=== PATIENT | female | born 1975 | race Caucasian/White ===

== ENCOUNTER → 2021-09-12 | Outpatient (CLI) | payer BC | LOC: M RAD 08:28 | PROVIDERS: ATTEND Internal Medicine Gastroenterology | DX: K70.30 Alcoholic cirrhosis of liver without ascites (principal) ==

== ENCOUNTER 2021-09-26 19:28 | Emergency (ER) | payer BC ==
[~2021-09-26] VITALS: Ht 160 cm; Wt 62.2 kg
[2021-09-26] MEDS ORDERED: NS 1,000 ML IV ONE (19:40)
[2021-09-26 19:54] LABS: HEMATOCRIT 36.9 % (36.0-47.0); HEMOGLOBIN 12.1 g/dl (12.0-15.5); MEAN CORPUSCULAR HEMOGLOBIN 28.8 pg (27.0-33.0); MEAN CORPUSCULAR HGB CONC 32.8 g/dl (32.0-36.5); MEAN CORPUSCULAR VOLUME 87.9 fl (80.0-96.0); PLATELET COUNT, AUTOMATED 387 10^3/uL (150-450); WHITE BLOOD COUNT 12.2 10^3/uL (4.0-10.0)
[2021-09-26 20:25] LABS: HCG, SERUM QUALITATIVE NEGATIVE (NEGATIVE)
[2021-09-26 20:33] LABS: ACETAMINOPHEN LEVEL < 2.0 UG/ML (10.0-30.0); ALBUMIN 3.5 GM/DL (3.2-5.2); ALT/SGPT 33 U/L (12-78); BILIRUBIN,DIRECT 0.2 MG/DL (0.0-0.2); BILIRUBIN,TOTAL 0.4 MG/DL (0.2-1.0); BLOOD UREA NITROGEN 13 MG/DL (7-18); CALCIUM LEVEL 7.8 MG/DL (8.5-10.1); CARBON DIOXIDE LEVEL 23 MEQ/L (21-32); CHLORIDE LEVEL 108 MEQ/L (98-107); CREATININE FOR GFR 0.71 MG/DL (0.55-1.30); GLOMERULAR FILTRATION RATE > 60.0 (>58); GLUCOSE, FASTING 163 MG/DL (70-100); POTASSIUM SERUM 3.6 MEQ/L (3.5-5.1); SALICYLATE LEVEL < 1.7 MG/DL (5.0-30.0); SODIUM LEVEL 141 MEQ/L (136-145); TOTAL PROTEIN 6.9 GM/DL (6.4-8.2)
[2021-09-26 20:43] LABS: ATYPICAL LYMPH 9 % (0-5); BASOPHILS 1 % (0-1); EOSINOPHILS 3 % (0-3); LYMPHOCYTES 27 % (16-44); MONOCYTES 1 % (0-5); NEUTROPHILS 59 % (28-66); PLATELET ESTIMATE NORMAL (NORMAL)
[2021-09-26] MEDS ORDERED: MULTIVITAMIN -ADULT INJECTION 10 ML, THIAMINE INJection 100 MG, FOLIC ACID 1 MG in NS 1... IV ONE (22:15)
[2021-09-26] MEDS ORDERED: ONDANSETRON 4MG/2ML VIAL IV ONE (22:40)
[2021-09-27 02:48] LABS: RSV AMPLIFICATION NEGATIVE (NEGATIVE)
[2021-09-27 02:57] LABS: AMPHETAMINES LEVEL URINE NEGATIVE (NEGATIVE); BARBITURATES URINE NEGATIVE (NEGATIVE); BENZODIAZEPINES URINE NEGATIVE (NEGATIVE); CANNABINOIDS URINE NEGATIVE (NEGATIVE); COCAINE METABOLITE URINE NEGATIVE (NEGATIVE); METHADONE URINE NEGATIVE (NEGATIVE); OPIATES URINE NEGATIVE (NEGATIVE); PHENCYCLIDINE URINE NEGATIVE (NEGATIVE)
[2021-09-27] MEDS ORDERED: POTA10CA32 (03:00)
[2021-09-27] MEDS ORDERED: POTA1TAB23 (03:00)
[2021-09-27] MEDS ORDERED: FURO20TA2 (03:00)
[2021-09-27] MEDS ORDERED: VITA100T28 (03:00)
[2021-09-27] MEDS ORDERED: FOLI1TAB11 (03:00)
[2021-09-27] MEDS ORDERED: CHLO5CAP4 (03:00)
[2021-09-27] MEDS ORDERED: PANT40TA29 (03:00)
[2021-09-27] MEDS ORDERED: DICY20TA20 (03:00)
[2021-09-27] MEDS ORDERED: DOXE50CA (03:00)
[2021-09-27] MEDS ORDERED: FLUO20CA22 (03:00)
[2021-09-27] MEDS ORDERED: SPIR-10 (03:00)
[2021-09-27] MEDS ORDERED: LACT10SO3 (03:00)
[2021-09-27] MEDS ORDERED: HYDR50CA2 (03:00)
[2021-09-27 08:51] VITALS: BP 119/62
== END 2021-09-27 08:53 | disposition short-term general hospital (02) ==
LOC: M ED 19:28
DX: F10.229 Alcohol dependence with intoxication, unspecified (principal); Y90.3 Blood alcohol level of 60-79 mg/100 ml; Z88.0 Allergy status to penicillin; Z79.899 Other long term (current) drug therapy
CPT/HCPCS: 70450; 71045; 72125; 80048; 80076; 80143; 80307; 82077; 82550; 83605; 84443; 84703; 85025; 87631; 93005; 93041; 94760; 96361; 96374; 99285; J2405; J3411

== ENCOUNTER 2022-11-12 16:52 | Emergency (ER) | payer BC ==
[~2022-11-12] VITALS: Ht 152.4 cm; Wt 61.6 kg
[~2022-11-12 16:52] MED LIST: CHLO5CAP4; DICY20TA20; DOXE50CA; FLUO20CA22; FOLI1TAB11; FURO20TA2; HYDR50CA2; LACT10SO3; PANT40TA29; POTA10CA33; POTA1TAB23; SPIR-10; VITA100T28
[2022-11-12 16:53] VITALS: BP 113/66
[2022-11-12] MEDS ORDERED: B-11TAB (17:01)
[2022-11-12] MEDS ORDERED: GABA600T4 (17:01)
[2022-11-12 18:01] LABS: BASO # 0.1 10^3/uL (0.0-0.2); BASO % 0.6 % (0.0-1.0); EOS # 0.3 10^3/uL (0.0-0.5); EOS % 3.3 % (0.0-3.0); HEMATOCRIT 32.6 % (36.0-47.0); HEMOGLOBIN 11.1 g/dl (12.0-15.5); LYMPH # 1.3 10^3/uL (1.5-5.0); LYMPH % 15.4 % (24.0-44.0); MEAN CORPUSCULAR HEMOGLOBIN 36.6 pg (27.0-33.0); MEAN CORPUSCULAR VOLUME 107.6 fl (80.0-96.0); MONO # 1.2 10^3/uL (0.0-0.8); MONO % 14.8 % (2.0-8.0); NEUTROPHILS # 5.4 10^3/uL (1.5-8.5); NEUTROPHILS % 65.5 % (36.0-66.0); PLATELET COUNT, AUTOMATED 149 10^3/uL (150-450); RED BLOOD COUNT 3.03 10^6/uL (4.00-5.40); WHITE BLOOD COUNT 8.3 10^3/uL (4.0-10.0)
[2022-11-12 18:03] LABS: LIPASE 51 U/L (12-53)
[2022-11-12 18:12] LABS: ALBUMIN 2.9 G/DL (3.2-5.2); ALKALINE PHOSPHATASE 171 U/L (46-116); ALT/SGPT 63 U/L (7.0-40); AST/SGOT 231 U/L (<34); BILIRUBIN,DIRECT 2.6 MG/DL (<0.4); BILIRUBIN,TOTAL 3.2 MG/DL (0.3-1.2); BLOOD UREA NITROGEN < 5 MG/DL (9-23); CALCIUM LEVEL 8.1 MG/DL (8.5-10.1); CARBON DIOXIDE LEVEL 26 MMOL/L (20-31); CHLORIDE LEVEL 105 MMOL/L (98-107); CREATININE FOR GFR 0.48 MG/DL (0.55-1.30); GLOMERULAR FILTRATION RATE > 60.0 (>58); GLUCOSE, FASTING 127 MG/DL (60-100); POTASSIUM SERUM 3.4 MMOL/L (3.5-5.1); SODIUM LEVEL 139 MMOL/L (136-145)
[2022-11-12 18:27] LABS: HCG, SERUM QUALITATIVE NEGATIVE (NEGATIVE)
== END 2022-11-12 18:47 | disposition left against medical advice (07) ==
LOC: M ED 16:52
DX: R06.02 Shortness of breath (principal); Z53.21 Procedure and treatment not carried out due to patient leaving prior to being seen by health care provider

== ENCOUNTER 2022-11-17 16:10 | Emergency (ER) | payer BC ==
[~2022-11-17] VITALS: Ht 162.6 cm; Wt 58.0 kg
[~2022-11-17 16:10] MED LIST changes: +B-11TAB; +FOLIC ACID 1MG TAB PO SCH; +GABA600T4; +MULTIVITAMINS/MINERALS THERAP 1 TAB PO SCH
[2022-11-17] MEDS ORDERED: SPIR-10 (16:29)
[2022-11-17] MEDS ORDERED: FURO20TA2 (16:29)
[2022-11-17] MEDS: NS 1,000 ML IV SCH (17:11)
[2022-11-17 17:26] LABS: BASO # 0.1 10^3/uL (0.0-0.2); BASO % 0.5 % (0.0-1.0); EOS % 0.2 % (0.0-3.0); HEMATOCRIT 32.3 % (36.0-47.0); HEMOGLOBIN 11.4 g/dl (12.0-15.5); LYMPH # 1.4 10^3/uL (1.5-5.0); LYMPH % 10.9 % (24.0-44.0); MEAN CORPUSCULAR HEMOGLOBIN 37.3 pg (27.0-33.0); MEAN CORPUSCULAR HGB CONC 35.3 g/dl (32.0-36.5); MEAN CORPUSCULAR VOLUME 105.6 fl (80.0-96.0); MONO % 8.1 % (2.0-8.0); NEUTROPHILS # 9.9 10^3/uL (1.5-8.5); NEUTROPHILS % 79.7 % (36.0-66.0); PLATELET COUNT, AUTOMATED 195 10^3/uL (150-450); RED BLOOD COUNT 3.06 10^6/uL (4.00-5.40); WHITE BLOOD COUNT 12.4 10^3/uL (4.0-10.0)
[2022-11-17 17:43] LABS: INR 1.44; PROTHROMBIN TIME 17.8 SECONDS (12.5-14.5)
[2022-11-17 17:44] LABS: PARTIAL THROMBOPLASTIN TIME 40.7 SECONDS (24.8-34.2)
[2022-11-17 17:51] LABS: LIPASE 36 U/L (12-53)
[2022-11-17 17:53] LABS: ALKALINE PHOSPHATASE 184 U/L (46-116); ALT/SGPT 70 U/L (7.0-40); AST/SGOT 251 U/L (<34); BILIRUBIN,DIRECT 5.7 MG/DL (<0.4); BLOOD UREA NITROGEN 6 MG/DL (9-23); CARBON DIOXIDE LEVEL 25 MMOL/L (20-31); CHLORIDE LEVEL 97 MMOL/L (98-107); CREATININE FOR GFR 0.54 MG/DL (0.55-1.30); GLOMERULAR FILTRATION RATE > 60.0 (>58); GLUCOSE, FASTING 143 MG/DL (60-100); SODIUM LEVEL 133 MMOL/L (136-145); TOTAL PROTEIN 6.4 G/DL (5.7-8.2)
[2022-11-17] MEDS ORDERED: POTASSIUM CHLORIDE 10MEQ SR TABLET PO ONE (18:05)
[2022-11-17] MEDS ORDERED: ISOVUE-370 76% 100ML VIAL As Ordered ONE (18:18)
[2022-11-17] MEDS ORDERED: ONDANSETRON 4MG 2ML VIAL IV ONE (18:40)
[2022-11-17] MEDS: LORazepam 2 MG TAB PO PRN ×2 (18:47→21:52)
[2022-11-17] MEDS ORDERED: THIAMINE 100 MG TAB PO SCH (21:00)
[2022-11-17] MEDS ORDERED: PIPERACILLIN/TAZOBACTAM SOD 3.375 GM in D5W MINI-BAG PLUS 50 ML IV ONE (23:35)
[2022-11-18 00:59] LABS: ACETAMINOPHEN LEVEL 3.4 UG/ML (10.0-20.0)
[2022-11-18 01:12] LABS: RSV AMPLIFICATION NEGATIVE (NEGATIVE)
[2022-11-18] MEDS ORDERED: NS 500 ML IV ONE (01:35)
[2022-11-18] MEDS: NS 1,000 ML IV SCH (02:30)
[2022-11-18] MEDS ORDERED: PIPERACILLIN/TAZOBACTAM SOD 3.375 GM in D5W MINI-BAG PLUS 50 ML IV ONE (06:30)
[2022-11-18 06:31] VITALS: BP 96/54
[2022-11-18] MEDS: LORazepam 2 MG TAB PO PRN (06:51)
== END 2022-11-18 07:09 | disposition short-term general hospital (02) ==
LOC: M ED 16:10
DX: K70.10 Alcoholic hepatitis without ascites (principal); F10.139 Alcohol abuse with withdrawal, unspecified; K81.0 Acute cholecystitis; Z79.899 Other long term (current) drug therapy
CPT/HCPCS: 74177; 76705; 80048; 80076; 80143; 82077; 83690; 85025; 85610; 85730; 87631; 96361; 96365; 96366; 96375; 99284; J2405; J2543; Q9967

== ENCOUNTER 2022-12-07 01:43 | Emergency (ER) | payer BC ==
[~2022-12-07 01:43] MED LIST changes: -B-11TAB; +B-11TAB PO; -FOLIC ACID 1MG TAB PO SCH; -MULTIVITAMINS/MINERALS THERAP 1 TAB PO SCH
[2022-12-07 02:50] LABS: HEMATOCRIT 28.4 % (36.0-47.0); MEAN CORPUSCULAR HEMOGLOBIN 37.9 pg (27.0-33.0); MEAN CORPUSCULAR HGB CONC 35.2 g/dl (32.0-36.5); MEAN CORPUSCULAR VOLUME 107.6 fl (80.0-96.0); PLATELET COUNT, AUTOMATED 316 10^3/uL (150-450); RED BLOOD COUNT 2.64 10^6/uL (4.00-5.40); WHITE BLOOD COUNT 18.4 10^3/uL (4.0-10.0)
[2022-12-07 03:15] LABS: AMPHETAMINES LEVEL URINE NEGATIVE (NEGATIVE); BARBITURATES URINE NEGATIVE (NEGATIVE); BENZODIAZEPINES URINE NEGATIVE (NEGATIVE); CANNABINOIDS URINE NEGATIVE (NEGATIVE); COCAINE METABOLITE URINE NEGATIVE (NEGATIVE); METHADONE URINE NEGATIVE (NEGATIVE); OPIATES URINE NEGATIVE (NEGATIVE); PHENCYCLIDINE URINE NEGATIVE (NEGATIVE)
[2022-12-07 03:18] LABS: SALICYLATE LEVEL < 3.0 MG/DL (<30)
[2022-12-07 03:19] LABS: ALBUMIN 2.8 G/DL (3.2-5.2); ALKALINE PHOSPHATASE 160 U/L (46-116); ALT/SGPT 200 U/L (7.0-40); AST/SGOT 305 U/L (<34); BILIRUBIN,DIRECT 3.3 MG/DL (<0.4); BILIRUBIN,TOTAL 4.3 MG/DL (0.3-1.2); BLOOD UREA NITROGEN 8 MG/DL (9-23); CALCIUM LEVEL 7.9 MG/DL (8.5-10.1); CARBON DIOXIDE LEVEL 21 MMOL/L (20-31); CHLORIDE LEVEL 102 MMOL/L (98-107); CREATININE FOR GFR 0.82 MG/DL (0.55-1.30); GLOMERULAR FILTRATION RATE > 60.0 (>58); GLUCOSE, FASTING 106 MG/DL (60-100); POTASSIUM SERUM 3.5 MMOL/L (3.5-5.1); SODIUM LEVEL 136 MMOL/L (136-145)
[2022-12-07 03:21] LABS: THYROID STIMULATING HORMONE 0.526 uIU/ML (0.55-4.78)
[2022-12-07 03:28] LABS: HCG, SERUM QUALITATIVE NEGATIVE (NEGATIVE)
[2022-12-07 03:30] LABS: ACETAMINOPHEN LEVEL < 2.0 UG/ML (10.0-20.0)
[2022-12-07 03:48] LABS: ETHYL ALCOHOL (ETHANOL) 0.317 % (0.000-0.010)
[2022-12-07] MEDS ORDERED: GABAPENTIN 300 MG CAP PO ONE (06:10)
[2022-12-07] MEDS ORDERED: OXAZEPAM 15MG CAP PO ONE (06:10)
[2022-12-07 08:44] LABS: INR 1.18; PROTHROMBIN TIME 15.3 SECONDS (12.5-14.5)
[2022-12-07 08:45] LABS: PARTIAL THROMBOPLASTIN TIME 31.8 SECONDS (24.8-34.2)
[2022-12-07 12:08] LABS: BASO % 0.4 % (0.0-1.0); EOS # 0.2 10^3/uL (0.0-0.5); HEMATOCRIT 22.9 % (36.0-47.0); HEMOGLOBIN 7.7 g/dl (12.0-15.5); MEAN CORPUSCULAR HGB CONC 33.6 g/dl (32.0-36.5); MONO # 0.8 10^3/uL (0.0-0.8); MONO % 8.1 % (2.0-8.0); NEUTROPHILS # 6.6 10^3/uL (1.5-8.5); PLATELET COUNT, AUTOMATED 179 10^3/uL (150-450); RED BLOOD COUNT 2.14 10^6/uL (4.00-5.40); WHITE BLOOD COUNT 9.7 10^3/uL (4.0-10.0)
[2022-12-07 12:11] LABS: ALBUMIN 2.2 G/DL (3.2-5.2); BILIRUBIN,DIRECT 2.3 MG/DL (<0.4); BILIRUBIN,TOTAL 3.1 MG/DL (0.3-1.2); TOTAL PROTEIN 4.7 G/DL (5.7-8.2)
[2022-12-07] MEDS ORDERED: BUSP10TA PO (12:18)
[2022-12-07] MEDS ORDERED: GABA600T4 PO (12:18)
[2022-12-07] MEDS ORDERED: SPIR-10 PO (12:18)
[2022-12-07] MEDS ORDERED: PANT40TA29 PO (12:18)
[2022-12-07] MEDS ORDERED: PROP10TA56 PO (12:18)
[2022-12-07] MEDS ORDERED: HYDR1CAP25 PO (12:18)
[2022-12-07] MEDS ORDERED: FURO20TA2 PO (12:18)
[2022-12-07] MEDS ORDERED: SULF400T14 PO (13:58)
[2022-12-07 14:02] VITALS: BP 115/68
[2022-12-07 15:20] LABS: HEMATOCRIT 22.6 % (36.0-47.0); HEMOGLOBIN 7.6 g/dl (12.0-15.5); MEAN CORPUSCULAR HEMOGLOBIN 36.2 pg (27.0-33.0); MEAN CORPUSCULAR HGB CONC 33.6 g/dl (32.0-36.5); MEAN CORPUSCULAR VOLUME 107.6 fl (80.0-96.0); PLATELET COUNT, AUTOMATED 156 10^3/uL (150-450); WHITE BLOOD COUNT 7.9 10^3/uL (4.0-10.0)
[2022-12-07] MEDS ORDERED: LACT20EL PO (15:24)
[2022-12-07] MEDS ORDERED: PRED15SO24 PO (15:24)
[2022-12-07] MEDS ORDERED: HOME MED LIST COMPLETE! XX SCH (15:25)
[2022-12-07] MEDS ORDERED: ISOVUE-370 76% 100ML VIAL As Ordered ONE (16:04)
[2022-12-07 16:05] LABS: PERCENT SATURATION 11.7 % (13.2-45.0)
[2022-12-07 16:08] LABS: FERRITIN 234.6 NG/ML (7.3-270.7)
== END 2022-12-07 16:55 | disposition left against medical advice (07) ==
LOC: M ED 01:43
DX: F10.129 Alcohol abuse with intoxication, unspecified (principal); K70.10 Alcoholic hepatitis without ascites; Z79.899 Other long term (current) drug therapy
CPT/HCPCS: 36415; 71260; 74177; 80048; 80076; 80143; 80307; 82077; 82140; 82728; 83550; 84443; 84703; 85025; 85027; 85610; 85730; 87635; 99284; Q9967

== ENCOUNTER 2023-01-18 17:33 | Emergency (ER) | payer BC ==
[~2023-01-18] VITALS: Ht 162.6 cm; Wt 58.7 kg
[~2023-01-18 17:33] MED LIST changes: +BUSP10TA PO; +CHLO25CA PO; +CIPR250T3 PO; +CIPR500T39 PO; +FOLI1TAB11 PO; +FURO20TA2 PO; +GABA600T4 PO; +HYDR1CAP25 PO; +LACT20EL PO; +MAGN400T2 PO; +METR-265 PO; +PANT40TA29 PO; +POTA-298 PO; -POTA10CA33; +POTA10CA60; +PRED15SO24 PO; +PREPOI TOP; +PROP10TA56 PO; +SPIR-10 PO; +SULF400T14 PO
[2023-01-18 17:34] VITALS: BP 117/74; TEMP 97.9; O2SAT 100
== END 2023-01-18 19:55 | disposition left against medical advice (07) ==
LOC: M ED 17:33
DX: R10.9 Unspecified abdominal pain (principal); Z53.21 Procedure and treatment not carried out due to patient leaving prior to being seen by health care provider